=== PATIENT | female | born 1990 | race Caucasian/White ===

== ENCOUNTER → 2017-04-17 | Outpatient (CLI) | payer BC ==
--- NOTE | 2017-04-17 14:15 | Diagnostic Imaging Report ---
PROCEDURE: US Thyroid. TECHNIQUE: Multiple real-time grayscale images were obtained of the thyroid in various projections. INDICATION: Followup thyroid nodules. COMPARISON: 10/26/2016 and 03/29/2016. DISCUSSION: The thyroid gland is normal in echotexture and size. The right thyroid measures 4.8 x 1.4 x 1.7 cm. Left thyroid measures 4.8 x 1.2 x 1.8 cm. Multiple subcentimeter hypoechoic nodules are again noted bilaterally. The largest on the right measures 5 mm. The largest on left measures 7 mm. Nodules are too small to further characterize by ultrasound. No abnormal color Doppler blood flow or suspicious microcalcifications identified. Recommend yearly sonographic followup to document further stability. No abnormal adjacent lymph nodes identified. IMPRESSION: 1. Bilateral subcentimeter thyroid nodules which show no adverse interval change. Recommend yearly sonographic followup. Dictated by: Dictated on workstation # [id number]
== END ==
LOC: RAD 13:18
PROVIDERS: ATTEND Physician Assistant Medical
DX: E04.1 Nontoxic single thyroid nodule (principal)
CPT/HCPCS: 76536